=== PATIENT | male | born 1985 | race Native Hawaiian/Other Pacific Islander ===

== ENCOUNTER 2017-02-28 09:01 | Emergency (ER) | payer BC ==
[2017-02-28] MEDS ORDERED: Aspirin 325 mg EC Tablets PO STA (09:58)
--- NOTE | 2017-02-28 10:34 | RAD ---
HISTORY: chest pain COMPARISON: None available. TECHNIQUE: Chest PA and lateral FINDINGS: Examination limited by habitus and hypoinflation. LUNGS: No focal consolidation. Please note that chest x-ray has limited sensitivity for the detection of pulmonary masses. PLEURA: No significant pleural effusion identified. No definite pneumothorax . CARDIOVASCULAR: The cardiomediastinal silhouette appears within normal limits of size. OSSEOUS STRUCTURES: No acute osseous abnormality identified. VISUALIZED UPPER ABDOMEN: Mild elevation of the right hemidiaphragm. OTHER FINDINGS: None. IMPRESSION: No focal consolidation, significant pleural effusion, or definite pneumothorax identified.
[2017-02-28 10:56] LABS: BASO # 0.1 K/uL (0.0-0.2); BASO % 0.7 % (0.0-2.0); EOS # 0.2 K/uL (0.0-0.7); EOS % 2.3 % (0.0-4.0); HEMATOCRIT 45.8 % (35.0-51.0); LYMPH # 2.3 K/uL (1.0-4.3); LYMPH % 21.8 % (20.0-40.0); MEAN CELL VOLUME 84.7 fL (80.0-94.0); MEAN PLATELET VOLUME 8.8 fL (7.2-11.7); MONO # 0.6 K/uL (0.0-0.8); NRBC % 0.1 % (0.0-2.0); RED CELL DISTRIBUTION WIDTH 13.4 % (11.5-14.5); WHITE BLOOD COUNT 10.4 K/uL (4.8-10.8)
[2017-02-28] MEDS ORDERED: Aspirin 325 mg EC Tablets PO ONE (10:59)
[2017-02-28 11:03] VITALS: RESP 18; O2SAT 98
[2017-02-28 11:09] LABS: CHLORIDE 102 mmol/L (98-107); SODIUM 139 mmol/L (132-148)
[2017-02-28 11:10] LABS: POTASSIUM 4.3 mmol/L (3.6-5.2)
[2017-02-28 11:12] LABS: ALB/GLOB RATIO 1.2 (1.0-2.1); ALKALINE PHOSPHATASE 90 U/L (38-126); ALT/SGPT 47 U/L (21-72); AST/SGOT 31 U/L (17-59); BILIRUBIN,TOTAL 0.8 mg/dL (0.2-1.3); BLOOD UREA NITROGEN 12 mg/dL (9-20); CARBON DIOXIDE 26 mmol/L (22-30); GFR AFRICAN-AMERICAN > 60; GLUCOSE,RANDOM 99 mg/dL (75-110); TOTAL PROTEIN 7.5 g/dL (6.3-8.3)
[2017-02-28 11:13] LABS: CALCIUM 8.9 mg/dl (8.6-10.4)
[2017-02-28 11:17] LABS: RBC URINE 1 /hpf (0-3); URINE BILIRUBIN NEGATIVE (NEGATIVE); URINE BLOOD NEGATIVE (NEGATIVE); URINE COLOR Yellow (YELLOW); URINE GLUCOSE (UA) NORMAL (Normal); URINE KETONE NEGATIVE (NEGATIVE); URINE LEUKOCYTE ESTERASE NEG Leu/uL (Negative); URINE PROTEIN NEGATIVE (NEGATIVE); URINE UROBILINOGEN NORMAL mg/dL (0.2-1.0); WBC URINE 2 /hpf (0-5)
--- NOTE | 2017-02-28 11:32 | C.PDOC ---
History Of Present Illness 31 year old male presents to the ED with complaints of a pinching pain to his mid-chest for the past 6 days. Patient states 6 days ago he drank a Red Bull and took a performance enhancing pills then went to the gym, where he first experienced the pain and palpitations. He notes the pain has been intermittent since. Denies any current pain, SOB, fever, cough, or any other complaints at this time. Time Seen by Provider: 02/28/17 09:26 Chief Complaint (Nursing): Chest Pain History Per: Patient History/Exam Limitations: no limitations Onset/Duration Of Symptoms: Days, Intermittent Episodes Current Symptoms Are (Timing): Better Severity: Mild Quality: Other (Pinching) Past Medical History Reviewed: Historical Data, Nursing Documentation, Vital Signs Vital Signs: Last Vital Signs Temp 98.5 F 02/28/17 11:42 Pulse 61 02/28/17 11:42 Resp 18 02/28/17 11:42 BP 123/77 02/28/17 11:42 Pulse Ox 98 02/28/17 11:45 - Medical History PMH: No Chronic Diseases Family History: States: Unknown Family Hx - Social History Hx Alcohol Use: Yes Hx Substance Use: No - Immunization History Hx Tetanus Toxoid Vaccination: No Hx Influenza Vaccination: No Hx Pneumococcal Vaccination: No Review Of Systems Except As Marked, All Systems Reviewed And Found Negative. Constitutional: Negative for: Fever, Chills, Sweats Cardiovascular: Positive for: Chest Pain. Negative for: Palpitations Respiratory: Negative for: Cough, Shortness of Breath Gastrointestinal: Negative for: Vomiting Musculoskeletal: Negative for: Back Pain Neurological: Negative for: Weakness, Numbness Physical Exam - Physical Exam Appears: Non-toxic, No Acute Distress Skin: Normal Color, Warm, Dry Head: Atraumatic, Normacephalic Eye(s): bilateral: Normal Inspection, EOMI Nose: Normal Oral Mucosa: Moist Throat: Normal, No Erythema Neck: Normal ROM, Supple Chest: Symmetrical, No Deformity, No Tenderness Cardiovascular: Rhythm Regular Respiratory: Normal Breath Sounds, No Accessory Muscle Use, No Rales, No Rhonchi , No Wheezing Gastrointestinal/Abdominal: Normal Exam, Soft, No Tenderness Extremity: Normal ROM Neurological/Psych: Oriented x3, Normal Speech, Normal Cognition ED Course And Treatment - Laboratory Results Result Diagrams: 02/28/17 10:51 04/03/17 10:51 ECG: Interpreted By Me, Viewed By Me ECG Rhythm: Sinus Rhythm Rate From EC O2 Sat by Pulse Oximetry: 98 (Room air) Pulse Ox Interpretation: Normal - Radiology CXR: Viewed By Me, Read By Radiologist CXR Interpretation: Yes: No Acute Disease Progress Note: CXR, EKG, Blood work, and Urinalysis ordered and reviewed. Patient treated with Aspirin. Upon reevlauation, patient is still resting comfortably with no pain. Discussed with pt that currently pt is asymptomatic, no SOB, and labs are WNL. Pt was informed that can not be ruled out all pathologies therefore strict follow up is instructed. Instructed to return to ER if symtpoms persist or worsen. Disposition - Disposition Disposition: HOME/ ROUTINE Disposition Time: 11:31 Condition: STABLE Additional Instructions: Follow up with primary medical doctor in 1-3 days without fail for further evaluation. Return to the emergency department at any time if symptoms persist or worsen. Instructions: Chest Pain (ED) Forms: Work Excuse - Clinical Impression Clinical Impression: Chest pain - PA / FUR FEEDER / Resident Statement MD/DO has reviewed & agrees with the documentation as recorded. - Scribe Statement The provider has reviewed the documentation as recorded by the Scribe Martha Flores. All medical record entries made by the Scribe were at my direction and personally dictated by me. I have reviewed the chart and agree that the record accurately reflects my personal performance of the history, physical exam, medical decision making, and the department course for this patient. I have also personally directed, reviewed, and agree with the discharge instructions and disposition.
[2017-02-28 11:43] VITALS: BP 123/77; PULSE 61; TEMP 98.5
--- NOTE | 2017-03-02 19:10 | CARD ---
APPROVED REPORT EKG Measurement Heart [id number] OR 130P8 [id number] <Conclusion> Normal sinus rhythm Normal ECG
== END 2017-02-28 11:43 | disposition home or self-care (01) ==
LOC: C.ER 09:01
DX: R07.9 Chest pain, unspecified (principal)
CPT/HCPCS: 71020; 80053; 81001; 82550; 82553; 83690; 84484; 85025; 85378; 93005; 99285; G0480

== ENCOUNTER 2017-03-11 22:44 | Emergency (ER) | payer BC ==
[2017-03-11] MEDS ORDERED: Aspirin 325 mg EC Tablets PO STA (23:16)
--- NOTE | 2017-03-11 23:16 | C.PDOC ---
History Of Present Illness A 31 year old male presents to the emergency room with complaints of acute precordial chest pain that occurred a few hours prior to arrival. Patient reports that she felt numbness and tingling to the hands and feet. Patient notes that the pain was transient and resolved 2 hours before arrival. Patient denies any shortness of breath, abdominal pain, headaches, dizziness, fever, chills, nausea, vomiting, diarrhea, or any other complaints. Time Seen by Provider: 03/11/17 23:03 Chief Complaint (Nursing): Chest Pain History Per: Patient History/Exam Limitations: no limitations Onset/Duration Of Symptoms: Hrs Current Symptoms Are (Timing): Still Present Severity: Mild Quality: "Pain" Modifying Factors: None Exacerbating Factors: None Alleviating Factors: None Recent travel outside of the [place]: No Past Medical History Reviewed: Historical Data, Nursing Documentation, Vital Signs Vital Signs: Last Vital Signs Temp 98.1 F 03/11/17 22:54 Pulse 85 03/11/17 22:54 Resp 14 03/11/17 22:54 BP 138/89 03/11/17 22:54 Pulse Ox 99 03/12/17 00:25 Family History: States: Unknown Family Hx - Social History Hx Alcohol Use: Yes Hx Substance Use: No - Immunization History Hx Tetanus Toxoid Vaccination: No Hx Influenza Vaccination: No Hx Pneumococcal Vaccination: No Review Of Systems Except As Marked, All Systems Reviewed And Found Negative. Constitutional: Positive for: Other (significant snoring (per ) without apnea). Negative for: Fever, Chills Cardiovascular: Positive for: Chest Pain Respiratory: Negative for: Shortness of Breath Gastrointestinal: Negative for: Nausea, Vomiting, Abdominal Pain, Diarrhea Neurological: Positive for: Numbness (Numbness and tingling to the hands and feet.). Negative for: Headache, Dizziness Physical Exam - Physical Exam Appears: Well, Non-toxic, Other (Obese) Skin: Normal Color, Warm, Dry Head: Atraumatic, Normacephalic Eye(s): bilateral: Normal Inspection Oral Mucosa: Moist Neck: Normal ROM, Supple Chest: Symmetrical, No Deformity, No Tenderness Cardiovascular: Rhythm Regular Respiratory: Normal Breath Sounds, No Rales, No Rhonchi, No Wheezing Gastrointestinal/Abdominal: Soft, No Tenderness, No Guarding, No Rebound Extremity: Normal ROM, No Tenderness, No Calf Tenderness, No Swelling Neurological/Psych: Oriented x3, Normal Speech, Normal Cognition ED Course And Treatment - Laboratory Results Result Diagrams: 03/11/17 23:16 03/11/17 23:16 Lab Interpretation: Normal (trop neg.) ECG: Interpreted By Me ECG Rhythm: Sinus Rhythm ECG Interpretation: Normal Rate From EC O2 Sat by Pulse Oximetry: 99 Pulse Ox Interpretation: Normal - Radiology CXR: Interpreted by Me CXR Interpretation: Yes: No Acute Disease, Other (+ cardiomegaly, apparent RVH and LVH) Medical Decision Making Medical Decision Making: atypical chest discomfort probably NOT cardiac subjective JIGNESH and cardiomegly, cardiomegaly on CXR- refer for sleep study Disposition Doctor Will See Patient In The: Office Counseled Patient/Family Regarding: Studies Performed, Diagnosis - Disposition Referrals: [facility] [Outside] Viral Wilkinson MD [Staff Provider] - Disposition: HOME/ ROUTINE Disposition Time: 00:25 Condition: GOOD Additional Instructions: Follow-up in our Clinic Seek a Sleep Study to evaluate for Obstructive Sleep Apnea (JIGNESH) Call Dr. Wilkinson's office to make an appointment. Instructions: Chest Pain (DC), Snoring (ED) - Clinical Impression Clinical Impression: Chest discomfort - Scribe Statement The provider has reviewed the documentation as recorded by the Faridehibliseth Ford Provider Scribe Attestation: All medical record entries made by the Scribe were at my direction and personally dictated by me. I have reviewed the chart and agree that the record accurately reflects my personal performance of the history, physical exam, medical decision making, and the department course for this patient. I have also personally directed, reviewed, and agree with the discharge instructions and disposition.
[2017-03-11 23:44] LABS: BASO % 0.6 % (0.0-2.0); EOS # 0.4 K/uL (0.0-0.7); EOS % 4.7 % (0.0-4.0); HEMATOCRIT 42.8 % (35.0-51.0); LYMPH # 1.7 K/uL (1.0-4.3); LYMPH % 20.2 % (20.0-40.0); MEAN CELL VOLUME 84.7 fL (80.0-94.0); MEAN CORPUSCULAR HEMOGLOBIN 27.8 pg (27.0-31.0); MEAN CORPUSCULAR HGB CONC 32.8 g/dL (33.0-37.0); MEAN PLATELET VOLUME 8.9 fL (7.2-11.7); MONO # 0.8 K/uL (0.0-0.8); MONO % 9.9 % (0.0-10.0); NRBC % 0.1 % (0.0-2.0); RED CELL DISTRIBUTION WIDTH 13.5 % (11.5-14.5); WHITE BLOOD COUNT 8.2 K/uL (4.8-10.8)
[2017-03-11 23:53] LABS: CHLORIDE 101 mmol/L (98-107); SODIUM 138 mmol/L (132-148)
[2017-03-11 23:54] LABS: POTASSIUM 3.8 mmol/L (3.6-5.2)
[2017-03-11 23:56] LABS: ALB/GLOB RATIO 1.4 (1.0-2.1); ALKALINE PHOSPHATASE 92 U/L (38-126); AST/SGOT 27 U/L (17-59); BILIRUBIN,TOTAL 0.6 mg/dL (0.2-1.3); BLOOD UREA NITROGEN 9 mg/dL (9-20); CARBON DIOXIDE 24 mmol/L (22-30); GFR AFRICAN-AMERICAN > 60; GLUCOSE,RANDOM 108 mg/dL (75-110); TOTAL PROTEIN 7.1 g/dL (6.3-8.3)
[2017-03-11 23:57] LABS: ALT/SGPT 38 U/L (21-72); CALCIUM 8.4 mg/dl (8.6-10.4)
[2017-03-12 00:37] VITALS: BP 111/73; PULSE 74; RESP 16; TEMP 97.8
[2017-03-12 00:38] VITALS: O2SAT 99
--- NOTE | 2017-03-12 09:01 | RAD ---
HISTORY: chest pain COMPARISON: Chest x-ray performed 02/28/17 TECHNIQUE: Chest, one view. FINDINGS: LUNGS: No focal consolidation. Please note that chest x-ray has limited sensitivity for the detection of pulmonary masses. PLEURA: No significant pleural effusion identified. No definite pneumothorax . CARDIOVASCULAR: Cardiomegaly, likely exaggerated by hypoinflation. OSSEOUS STRUCTURES: No acute osseous abnormality identified. VISUALIZED UPPER ABDOMEN: Unremarkable. OTHER FINDINGS: None. IMPRESSION: Cardiomegaly, likely exaggerated by hypoinflation. Correlate clinically.
--- NOTE | 2017-03-18 14:11 | CARD ---
APPROVED REPORT EKG Measurement Heart [id number] CT 124P13 [id number] <Conclusion> Normal sinus rhythm Normal ECG
== END 2017-03-12 00:36 | disposition home or self-care (01) ==
LOC: C.ER 22:44
DX: R07.9 Chest pain, unspecified (principal)